=== PATIENT | female | born 1985 | race Caucasian/White ===

== ENCOUNTER → 2017-09-21 | Outpatient (CLI) | payer OTHER ==
[~2017-09-21] MED LIST: IOPAMIDOL 300 MG/ML 15ML VIAL IT ONE
--- NOTE | 2017-09-21 14:38 | Diagnostic Imaging Report ---
PROCEDURE:X-RAY HYSEROSALPINGOGRAM COMPARISON:None. INDICATIONS: Infertility TECHNIQUE: Informed consent was obtained. A sterile vaginal speculum was introduced and following cleansing of the cervix with Betadine, a five [place] HSG balloon-tipped catheter was inserted into the endometrial cavity. 10 cc of omnipaque 300 was injected and multiple images in the frontal and bilateral oblique projections were obtained. Fluoroscopy time: 1 minute. FINDINGS: FALLOPIAN TUBES: The left fallopian tube is patent and showed prompt free spillage of contrast. There was a delay in filling of the right fallopian tube, however, spillage was also noted. ENDOMETRIAL CAVITY: Negative. OTHER: Negative. CONCLUSION: Both fallopian tubes are patent and show free spillage of contrast. There was a delay in filling of the right fallopian tube compared to the left. Joselo Prince M.D. Dictated by: Joselo Prince M.D. on 09/21/2017 at 14:40 Electronically approved by: Joselo Prince M.D. on 09/21/2017 at 14:40
--- NOTE | 2017-09-21 15:28 | Diagnostic Imaging Report ---
PROCEDURE:X-RAY PELVIS, AP VIEW COMPARISON:None. INDICATIONS:INFERTILITY FINDINGS: Normal mineralization. No acute displaced fracture or dislocation. No lytic or blastic lesions. Joint spaces are preserved. Nonobstructive bowel gas pattern. CONCLUSION: Unremarkable pelvis radiograph. Joselo Prince M.D. Dictated by: Joselo Prince M.D. on 09/21/2017 at 15:30 Electronically approved by: Joselo Prince M.D. on 09/21/2017 at 15:30
== END ==
LOC: DX 12:04
PROVIDERS: ATTEND Obstetrics & Gynecology
DX: N97.9 Female infertility, unspecified (principal)
CPT/HCPCS: 58340; 72170; 74740; 81025; Q9967